=== PATIENT | male | born 1985 | race Caucasian/White ===

== ENCOUNTER 2019-04-23 12:11 | Emergency (ER) | payer BC ==
[2019-04-23 12:30] VITALS: BP 140/78
[2019-04-23] MEDS: DIPH,PERTUSS(ACELL),TET VAC/PF 0.5 ML DISP.SYRIN IM ONE (12:44)
--- NOTE | 2019-04-23 12:44 | ED Physician Documentation ---
General Adult - HISTORIAN Historian: patient - HPI Stated Complaint: laceration Chief Complaint: Laceration/Recheck/Suture Additional Information: 34 year old female presents with laceration to the left lower extremity. Patient was field dressing a deer and the deer rolled and he cut his left lower anterior leg. Patient states that he cleaned it right after it happened. Approx. 1 cm laceration; patient does not want it sutured; he is requesting steri strips. Onset: hours Timing: still present Severity: mild Modifying Factors: knife- field dressing deer - ROS CONST: no problems EYES/ENT: none CVS/RESP: none GI/: none MS/SKIN/LYMPH: none - PAST HX Past History: none Other History: none Surgeries/Procedures: other (ablation as child) Immunizations: UTD. denies: tetanus (states he is needing up date) Allergies/Adverse Reactions: Allergies Allergy/AdvReac Type Severity Reaction Status Date / Time cefaclor [From Ceclor] Allergy Intermediate Rash Verified 04/23/19 12:23 Home Medications: Ambulatory Orders Medication Instructions Recorded NK 04/23/19 - SOCIAL HX Smoking History: non-smoker Alcohol Use: none Drug Use: none - FAMILY HX Family History: No - VITAL SIGNS Vital Signs: Vital Signs Temp Pulse Resp BP Pulse Ox 98.4 F 76 16 140/78 97 04/23/19 12:55 04/23/19 12:55 04/23/19 12:55 04/23/19 12:55 04/23/19 12:55 - REVIEWED ASSESSMENTS Nursing Assessment Reviewed: Yes Vitals Reviewed: Yes Procedures Wound Location: lower extremity Wound Length: 1cm Wound's Depth, Shape: linear Wound Explored: clean Wound Repaired With: steri-strips (tincture used) ED Results Lab/Radiology - Orders Orders: ED Orders Category Date Time Status Diph,Pertuss(Acell),Tet Vac/Pf [Adacel] Med 04/23/19 12:31 Discontinued 0.5 ml IM .ONCE ONE General Adult Physical Exam - PHYSICAL EXAM GENERAL APPEARANCE: no distress EENT: eye inspection normal, ENT inspection normal NECK: normal inspection RESPIRATORY: breath sounds normal CVS: heart sounds normal SKIN: warm/dry, normal color, other (1cm lac to the left lower leg) EXTREMITIES: non-tender, normal range of motion NEURO: oriented X3, CN's nml as tested, motor nml, sensation nml, mood/affect nml, cognition normal Discharge Clincal Impression: Laceration of lower leg without complication Referrals: Primary Doctor,No [Primary Care Provider] - 2 Days Additional Instructions: Keep area clean and dry; Steri-strips will eventually come off Monitor for signs of infection; redness, swelling, drainage Follow up with PCP as needed Condition: Good Disposition: 01 HOME, SELF-CARE Decision to Admit: NO Decision Time: 13:05
== END 2019-04-23 12:51 | disposition home or self-care (01) ==
LOC: ED 12:11
DX: S81.812A Laceration without foreign body, left lower leg, initial encounter (principal); W26.0XXA Contact with knife, initial encounter; Y93.89 Activity, other specified
CPT/HCPCS: 12001; 90471; 90715; 96372; 99282; 99284